=== PATIENT | male | born 1955 | race Caucasian/White ===

== ENCOUNTER → 2017-01-05 | Outpatient (CLI) | payer BC ==
[~2017-01-05] MED LIST: NORVASC PO
[2017-01-09 18:55] LABS: THYROID STIMULATING IMMUNOGLOB <89 (<140)
== END | disposition home or self-care (01) ==
LOC: CLAB 08:56
PROVIDERS: Specialist
DX: E04.1 Nontoxic single thyroid nodule (principal)
CPT/HCPCS: 36415; 84235; 84445; 86376